=== PATIENT | female | born 1955 | race Caucasian/White ===

== ENCOUNTER 2018-12-30 06:03 | Observation (INO) | payer BC ==
[~2018-12-30] VITALS: Ht 167.6 cm; Wt 79.2 kg
[~2018-12-30 06:03] MED LIST: ALENDRONATE SOD70 MG PO; CAL MAG ZINC +1 EAC1 PO; DICLOFENAC SODI75 MG PO; FLEXERIL10 MG PO; L-LYSINE500 M2 PO; LATANOPROST2.5 ML OU; LEVOTHYROXINE112 MCG PO; LIOTHYRONINE SO5 MCG PO; LISINOPRIL-HCT1 EAC2 PO; MEDROL4 M1 PO; METFORMIN HCL500 M1 PO; NORCO 5-325 TA1 EACH PO; QC MULTI VITE PO; VITAMIN D35000 UNI1 PO
[2018-12-30] MEDS ORDERED: LISINOPRIL20 MG PO ×2 (09:12)
[2018-12-30] MEDS ORDERED: HYDROCHLOROTHIA50 MG PO ×2 (09:12)
[2018-12-30] MEDS ORDERED: DICLOFENAC SODI75 MG PO ×2 (09:13)
--- NOTE | 2018-12-30 10:00 | NUR ---
PT ADMITED TO ROOM 127 FROM THE ED ON THE STRETCHER. PT IS DROWSY/LETHARGIC AT TIMES. PT WAKES FOR A FEW MINUTES TO TALK, BUT FALLS BACK TO SLEEP QUICKLY. PT A BEDSIDE AND ANSWERED A LOT OF THE ADMISSION QUESTIONS FOR THE PATIENT.
--- NOTE | 2018-12-30 11:10 | NUR ---
PT ASSESSMENT COMPLETED. PT NOW RESTING IN BED. PT HAS BEEN OFF/ON BEDPAN. PT HAS BROWN LIQUID STOOL X3 SINCE ADMISSION. UPDATED MD CRUZ OF THIS AND PT HAVING VAGAL EPISODES IN THE 40'S AND VOMITING X2. PER MD GIVE PHENERGAN AT THIS TIME. WILL CONTINUE TO CLOSELY MONITOR.
--- NOTE | 2018-12-30 11:30 | NUR ---
PT LAST BOWEL MOVEMENT NOTED TO HAVE RED BLOOD THROUGHOUT. UPDATED MD CRUZ. SEE NEW ORDERS.
--- NOTE | 2018-12-30 12:30 | NUR ---
PT HAD SEVERAL MORE VOMITING EPISODES AFTER PHENERGAN. GAVE PRN REGLAN. WILL CONTINUE TO CLOSELY MONITOR. PT VOMIT IS CLEAR WITH BROWN FLECKS. TESTED POSITIVE FOR BLOOD. MD ACUÑA HERE AND NOTIFIED.
--- NOTE | 2018-12-30 13:16 | NUR ---
NEW ORDERS PLACED PER MD ACUÑA. WILL PLACE HOOD PER MD. PT REMAINS DROWSY. PTS AT THE BEDSIDE. WILL CONTINUE TO CLOSELY MONITOR.
--- NOTE | 2018-12-30 13:40 | NUR ---
UPDATED MD CRUZ ABOUT NEW ORDERS AND PLANS PER DOCTOR ACUÑA. PER MD MAY DC LOVENOX AND ORDER SCD'S. UPDATED MD CRUZ ABOUT CONTINUED BRADYCARDIA AND BLOOD PRESSURES IN THE 90'S. NO VOMITING SINCE REGLAN ADMINISTERED. PT CONTINUES TO BE DROWSY SINCE ADMISSION. PT IS ALERT AND ORIENTED WHEN AWAKE.
--- NOTE | 2018-12-30 14:00 | NUR ---
PT HOOD PLACED WITH NO ISSUES. WILL START 24 HR URINE COLLECTION PER BOTH MDS. PT RESTING IN BED. WILL CONTINUE TO CLOSELY MONITOR.
[2018-12-30] MEDS ORDERED: GABAPENTIN100 MG PO ×2 (15:45)
[2018-12-30] MEDS ORDERED: OMEGA 3 1,0001 EACH PO ×2 (15:48)
--- NOTE | 2018-12-30 16:42 | NUR ---
CRUZ IN TO SEE PATIENT. UPDATED ON VITALS, URINE OUTPUT, AND PATIENTS CONDITION. PT STATES "I FEEL MUCH BETTER THAN WHEN I CAME IN". NO BM OR VOMITING THIS AFTERNOON. CALLED DR. ANDRADE AND DR ANNE CHAMPAGNE FOR RECORDS. AWAITING FAX FROM BOTH DOCTORS OFFICES. PT AND ARE AGREEABLE WITH PLAN OF CARE. WILL CONTINUE TO CLOSELY MONITOR.
--- NOTE | 2018-12-30 16:56 | EKG ---
[facility] [address] [facility] [place], [place] [address] Signed Sinus rhythm with premature atrial complexes Anterior infarct , age undetermined ST \T\ T wave abnormality, consider lateral ischemia Prolonged QT Abnormal ECG When compared with ECG of 07-AUG-2016 19:58, Significant changes have occurred Confirmed by RENATA CRUZ MD ([id number]) on 12/30/2018 4:56:22 PM Electronically Signed By: RENATA CRUZ MD 12/30/18 1656 PATIENT NAME: JOVITA GUTIERREZ Electrocardiogram DATE OF : 59 PHYSICIAN: RENATA CRUZ MD REPORT #: [id number] REPORT IS CONFIDENTIAL AND NOT TO BE RELEASED WITHOUT AUTHORIZATION
[2018-12-30] MEDS ORDERED: SELENIUM50 MCG PO ×2 (17:16)
--- NOTE | 2018-12-30 17:30 | NUR ---
PT COMPLAING THAT IT FEELS LIKE SHE NEEDS TO PEE. HOOD DRAINING CLEAR YELLOW UINE. EMPTIED TUBING. NO "AIR LOCK" NOTED. DEFLATED BALOON AND PUSHED HOOD IN FURTHER. PT NO LONGER COMPLAING AT THIS TIME. WILL CONTINUE TO CLOSELY MONITOR.
--- NOTE | 2018-12-30 17:48 | NUR ---
Meds reconciled with pharmacy records, patient list and patient interview
--- NOTE | 2018-12-30 18:12 | NUR ---
PT RESTING IN BED. PT STATES "I FEEL MUCH BETTER THAN EARLIER". PT STATES SHE IS STILL HAVING SOME DISCOMFORT WITH HOOD CATHETER, BUT ITS TOLERABLE AT THIS TIME. PT IS MORE AWAKE THIS EVENING AND IS ABLE TO HOLD A CONVERSATION. WILL CONTINUE TO CLOSELY MONITOR.
--- NOTE | 2018-12-30 18:34 | NUR ---
100MLS OF URINE GOT SPILLED. CALLED AND TALKED WITH CHRISTOPHER IN THE LAB. PER CHRISTOPHER AMOUNT WAS SUCH A MINISCUAL AMOUNT OF URINE IT WILL NOT AFFECT THIS TEST, AND NO NEED TO RESTART THE COLLECTION OF URINE, CAN CONTINUE WITH CURRENT COLLECTION.
--- NOTE | 2018-12-30 19:05 | NUR ---
PER MD HOLD LR FOR 30 MINUTES THEN REDRAW LABS. HOLD FLUIDS UNTIL LABS ARE RESULTED. UPDATED ABOUT URINE OUTPUT. NO NEW ORDERS. WILL CONTINUE TO CLOSELY MONITOR.
--- NOTE | 2018-12-30 19:54 | NUR ---
RECEIVED REPORT FROM [facility]. pt RESTING IN BED. LAB IN ROOM FOR DRAW. pt COMPLAINED OF BLADDER "FEELING FULL". WILL REASSESS AFTER LAB. CALL LIGHT WITHIN REACH. WHITEBOARD UPDATED.
--- NOTE | 2018-12-30 20:00 | NUR ---
PATIENT RESTFUL WITH EYES CLOSED, DENIES NEEDS AT THIS TIME, DENIES NAUSEA AND PAIN. PATIENT IS ALERT AND ORIENTED, DROWSY. LUNGS ARE CLEARR THROUGHOUT, SPO2 94% AND ABOVE ON RA. HEART RATE AND BP WNL. PATIENT DENIES RECENT STOOL, BOWEL TONES ARE HYPOACTIVE, ABD NON-TENDER, HOOD PRESENT, VOIDING QS PALE YELLOW URINE, PATIENT COMPLAINS OF BLADDER FEELING FULL AND FEELS NEED TO VOID, EDUCATED PATIENT THAT THIS IS COMMON EXPERIENCE WITH CATHETERIZATION. SCATTERED SPOTS NOTED ON ARMS AND CHEST, PATIENT NOTES THAT SHE HAD CHEMICAL SKIN TREATMENT TODAY. IV INTACT, SALINE LOCKED AT THIS TIME. [facility].
--- NOTE | 2018-12-30 21:15 | NUR ---
PATIENT REMAINS RESTFUL LAYING ON SIDE, DENIES NEEDS AT THIS TIME. IVF STARTED PER NEW ORDER. CALL LIGHT WITHIN REACH, HOOD CONTINUES TO DRAIN QS PALE YELLOW URINE.
--- NOTE | 2018-12-30 21:35 | NUR ---
DR. CRUZ CALLED ABOUT PATIENT'S LAB RESULTS, PATIENT TO RECEIVE KAYEXELATE AND IVF SWITCHED TO .45% NORMAL SALINE.
--- NOTE | 2018-12-30 23:29 | NUR ---
PATIENT REPORTS 5/10 HEADACHE AND STATES "I JUST CAN'T SLEEP. I AM FEELING PRETTY MISERABLE RIGHT NOW." ALSO REPORTS ABDOMINAL PAIN. DENIES FURTHER NEEDS. ASSESSMENT DONE, NO ACUTE CHANGES FROM INITIAL ASSESSMENT. DENIES NAUSEA. PATIENT ALSO HAS 100.[address] CRUZ THAT PATIENT HAS LOW GRADE FEVER AND ASKED IF HE WANTED ANY NEW LABS BEFORE ADMINISTERING TYLENOL. NO NEW ORDERS AT THIS TIME. IVF INFUSING, HOOD DRAINING QS URINE. CALL LIGHT WITHIN REACH.
--- NOTE | 2018-12-31 01:26 | NUR ---
PATIENT UP TO BEDSIDE COMMODE, TOLERATED WELL, NO DIZZINESS. HAD MODERATE AMOUNT OF LOOSE STOOL WITH SMALL AMOUNT OF MUCOID BLOOD. PATIENT NOW RESTING IN BED AGAIN, BREATHING IS EVEN AND UNLABORED. DENIES FURTHER NEEDS. VITALS WNL. CALL LIGHT WITHIN REACH.
--- NOTE | 2018-12-31 01:54 | NUR ---
PATIENT UP TO BSC AGAIN, HAD MORE LOOSE STOOL, MINIMAL BLOOD NOTED THIS TIME. NOW RESTING AGAIN IN BED. PATIENT DENIES FURTHER NEEDS. CALL LIGHT WITHIN REACH.
--- NOTE | 2018-12-31 01:55 | NUR ---
WHILE PATIENT UP TO COMMODE, NO CHANGE IN HEART RATE, BP UP TO 144/85 (99), CONTINUES TO DENIES DIZZINESS, GAIT IS STEADY.
--- NOTE | 2018-12-31 03:04 | NUR ---
PATIENT IS RESTFUL WITH EYES CLOSED, BREATHING IS EVEN AND UNLABORED. VITALS WNL, DENIES HEADACHE, STATES THAT ABD CRAMPING AND PAIN CONTINUES, NOT SEVERE BEFORE, DENIES NEED FOR MEDICATION. PATIENT HAS NO REQUESTS AT THIS TIME. CALL LIGHT WITHIN REACH.
--- NOTE | 2018-12-31 04:16 | NUR ---
PATIENT REMAINS RESTFUL WITH EYES CLOSED. DENIES NEEDS AT THIS TIME. REPORTS CONTINUED ABDOMINAL PAIN/CRAMPING, DENIES NEED FOR MEDICATION. NO ACUTE CHANGES FROM PREVIOUS ASSESSMENT, VITALS WNL. CALL LIGHT WITHIN REACH, IVF INFUSING PER ORDERR.
--- NOTE | 2018-12-31 05:27 | NUR ---
PATIENT REMAINS RESTFUL, DENIES NEEDS AT THIS TIME. ABD REMAINS PAINFUL WITH CRAMPING, PATIENT DENIES NEEDS IN THIS REGARD. CALL LIGHT WITHIN REACH.
--- NOTE | 2018-12-31 06:28 | NUR ---
ASSISTED PATIENT TO [facility] HAD MEDIUM SIZED MUCOID STOOL, NO APPARENT BLOOD SEEN. NOW RESTING IN BED AGAIN. REPORTS 4/10 HEADACHE AND 3/10 ABD PAIN. REPORTS ABDOMINAL PAIN CRAMPING AND PASSING SIGNIFICANT AMOUNT OF FLATUS. PRN TYLENOL GIVEN. PATIENT DENIES FURTHER NEEDS. VITALS WNL, NO ACUTE CHANGES IN ASSESSMENT. CALL LIGHT WITHIN REACH, IVF INFUSING PER ORDE, HOOD DRAINING QS DILUTE URINE.
--- NOTE | 2018-12-31 07:20 | CONS ---
[facility] [address] [place], [place] [address] Signed DATE OF CONSULTATION: 12/30/2018 CHIEF COMPLAINT: Rectal bleeding. HISTORY OF PRESENT ILLNESS: Jovita is a 63-year-old female, who over the last 3-4 years has had troubles with various hypotensive episodes and decreased level of consciousness. The exact etiology is unclear. She actually saw an towboat pilot, was evaluated for carcinoid syndrome and apparently that all came out negative. She actually saw a neurologist and had an EEG and it was negative. She then had a laparoscopic appendectomy and apparently had some type of vasovagal episode so-called coated on the table, but came through that just fine. 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 Her happens to work here in our hospital. More recently she was on the toilet and was found unresponsive, been hypotensive. Her called the ambulance and she remained hypotensive while she came in the emergency room. She responded to IV fluids and some octreotide. Apparently on this occasion, her skin was quite red, which again brings up this idea of carcinoid syndrome. She has been admitted to the ICU on our Internal Medicine Service. Her chest x-ray was unremarkable. The lab show the potassium a little low at 2.7, although she is on hydrochlorothiazide. She is diabetic, but the sugar was about 319 with quite a bit of sugar in the urine. EKG showed normal sinus rhythm, possible ischemia in the lateral leads. Chest x-ray was unremarkable. CT of the brain was unremarkable. CT of abdomen was unremarkable, specifically with respect to the liver, but also there was quite a bit of stool in her rectum and colon. Later, she had several soft bowel movements and now she is having diarrhea with some blood in it, most likely from some ischemia. Her told me she has very regular bowel movements and never has to strain for constipation. I have been asked to see her and follow along as a general surgeon do that rectal bleeding. Her told me today that her primary care provider, Dr. Anne Champagne did her colonoscopy probably less than five years ago up in [place]. In the meantime, she is minimally responsive in the ICU, but has unlabored breathing and no abdominal pain. PAST MEDICAL HISTORY: Hypertension, hypothyroidism, osteoporosis, question of seizures, question of carcinoid syndrome, glaucoma, also type 2 diabetes. PAST SURGICAL HISTORY: Bilateral knee surgery, laparoscopic appendectomy, tonsillectomy, adenoidectomy, hysterectomy, laparoscopic abdominal surgery, lumbar fusion with metal remaining, four knee arthroscopies, and a colonoscopy less than five years ago. SOCIAL HISTORY: She does not smoke or drink. She lives with her , Roshan Pruett at Electronically Signed By: TACHO ACUÑA MD 12/31/18 0720 PATIENT NAME: JOVITA GUTIERREZ CONSULTATION DATE OF : 59 REPORT #: [id number] PHYSICIAN: TACHO ACUÑA MD PCP: ANNE CHAMPAGNE MD REPORT IS CONFIDENTIAL AND NOT TO BE RELEASED WITHOUT AUTHORIZATION [address] [address] Signed [phone]. Dr. Anne Champagne is her primary care provider in [place]. [facility]. Dr. Cass Calderon is her towboat pilot. She has her own [employer]. FAMILY HISTORY: Her mother had amyotrophic lateral sclerosis. REVIEW OF SYSTEMS: I reviewed 10 systems with her as Jovita is not able to talk right now. ALLERGIES: Erythromycin, penicillin, tetracycline, Percodan, phenyltoloxamine, wasps, and shellfish. MEDICATIONS: Fosamax, calcium, magnesium, vitamin D, Voltaren, gabapentin, Xalatan eye drops, levothyroxine, liothyronine, lisinopril, hydrochlorothiazide, metformin, multivitamin, omega-3, and selenium. PHYSICAL EXAMINATION: VITAL SIGNS: Blood pressure 118/59, heart rate 66, respiratory rate 18, temperature 98.0 degrees. She is 98% on 2 L nasal cannula. She is 5 feet 6 inches, 80 kg. GENERAL: Jovita is a 63-year-old female, lying supine semi-recumbent in her hospital bed. She is minimally arousable. She is not able answer questions. Her is at the bedside along with our nurse. She had unlabored breathing. LUNGS: Clear to auscultation. HEART: Regular rate and rhythm. ABDOMEN: Soft and nontender. LABORATORY DATA: Her white blood cell count is 8, hemoglobin 13, mean cell volume is 99, and neutrophils are 11. Potassium is 2.7, BUN 20, creatinine 0.9, and glucose 319. Urine analysis showed some glucose. Liver function tests are negative. Albumin is 3.8 and her EKG shows some normal sinus rhythm, question of some ischemia in the lateral leads. RADIOGRAPHIC STUDIES: Chest x-ray was unremarkable. CT scan of the brain unremarkable. CT scan of the abdomen and pelvis showed an unremarkable liver and some stool in the colon and rectum. ASSESSMENT AND PLAN: Jovita is a 63-year-old female, who presents with some recurrent episode of hypotension and decreased level of consciousness at least an hour in length. Now, she has had some bowel movements with diarrhea and now some blood associated with that most likely from ischemia. We know she has had a colonoscopy less than five years ago. I think at this point, she needs to be watched conservatively and we will let the Medical Service Electronically Signed By: TACHO ACUÑA MD 12/31/18 0720 PATIENT NAME: JOVITA GUTIERREZ CONSULTATION DATE OF : 59 REPORT #: [id number] PHYSICIAN: TACHO ACUÑA MD PCP: ANNE CHAMPAGNE MD REPORT IS CONFIDENTIAL AND NOT TO BE RELEASED WITHOUT AUTHORIZATION [facility] [address] [facility], [place] [address] Signed rehydrate her and correct potassium and so forth. We would only re-scope her at this time if really absolutely necessary. I have explained this to her and her nurse, Liliane. Tacho Acuña MD ALB/MODL /[id number] cc: MD Tacho Agrawal MD Copies: ANNE CHAMPAGNE MD, ANDREW L MD ~ Electronically Signed By: TACHO ACUÑA MD 12/31/18 0720 PATIENT NAME: JOVITA GUTIERREZ CONSULTATION DATE OF : 59 REPORT #: [id number] PHYSICIAN: TACHO ACUÑA MD PCP: ANNE CHAMPAGNE MD REPORT IS CONFIDENTIAL AND NOT TO BE RELEASED WITHOUT AUTHORIZATION
--- NOTE | 2018-12-31 09:25 | NUR ---
CHECKED IN WITH PATIENT AT 0900 WHEN SHE RECIEVED HER BREAFAST. PATIENT WAS UP IN THE BED ON THE PHONE WITH HER DAUGHTER. PATIENT APPEARS TO BE IN A POSITIVE MOOD AND IS ACTIVELY ENGAGED. PATIENT DOES NOT APPEAR TO BE IN ANY DISTRESS. PATIENT HAD NO COMPLAINTS OF PAIN AT THIS TIME.
--- NOTE | 2018-12-31 09:27 | NUR ---
URINE CONTIOUES TO BE COLLECTED FOR 24 HOUR URINE TEST. CONTAINERS ARE ON ICE, AND HOOD BAG IS ALSO ON ICE. PT IV WAS SALINE LOCKED BY STUDENT NURSE EVELINE FROM [facility]. PT DIET WAS ADVANCED AND SHE IS TOLERATING IT WELL AT THIS TIME. PT C/O ABD BLOATING THAT WAS UNCOMFORTABLE. BUT DENIES THE NEED FOR PAIN MEDICATIONS, PT CASTELLANOS HAS DECREASED TO 1/.
--- NOTE | 2018-12-31 10:13 | NUR ---
CHECKED IN WITH PATIENT AT 1000. PATIENT WAS LAYING ON HER SIDE TRYING TO TAKE A NAP. ASKED THE PATIENT IF SHE WAS FEELING OKAY. PATIENT SAID THAT HER HEADACHE WAS BACK. PRN TYLENOL WAS OFFERED. PATIENT DECLINED AND STATED SHE WANTED TO SEE IF IT WOULD GO AWAY ON ITS OWN. PATIENT HAD NO OTHER COMPLAINTS AT THIS TIME.
--- NOTE | 2018-12-31 11:15 | NUR ---
CHECKED IN WITH PATIENT TO SEE HOW HER HEADACHE WAS DOING. PATIENT STATED HER HEADACHE WAS SLIGHTLY WORSE AND WAS A 4/10. PATIENT REQUESTED HER PRN TYLENOL. PATIENT WAS OFFERED TO ORDER LUNCH. REQUESTED CHICKEN NOODLE SOUP AND A FRUIT PLATE. PATIENT STATED SHE WAS SLIGHTLY NAUSEOUS, DOES NOT BELIEVE IT WAS CAUSED BY HER BREAKFAST. PATIENT DECLINED HER PRN NAUSEA MEDS.
--- NOTE | 2018-12-31 11:27 | NUR ---
DR ACUÑA INTO SEE PT AT THIS TIME. NO NEW ORDERS RECEIVED.
--- NOTE | 2018-12-31 12:46 | NUR ---
CHECKIN IN WITH PATIENT AT 12. PATIENTS IS IN THE ROOM AND PATIENT IS EATING LUNCH. PATIENT DOES NOT APPEAR TO BE IN DISTRESS. CHECKED BACK IN WITH PATIENT AT 1230. PATIENT STATES SHE IS HAVING INCREASED ABDOMINAL PAIN. PATIENT WAS ASKED IF SHE HAS ANY NAUSEA AND STATED THAT SHE DOES BUT IT IS VERY LITTLE. PATIENTS NEXT DOSE OF TYLENOL IS NOT YET AVAILABLE. PATIENT DID STATE SHE DID NOT WANT ANY MORE MEDICATIONS AT THIS TIME. PATIENT IS CURRENTLY LAYING DOWN IN THE DARK AND TRYING TO TAKE A NAP.
--- NOTE | 2018-12-31 14:13 | NUR ---
HOOD CATHETER DC'D AT THIS TIME, THE 24 HOUR URINE SENT TO LAB ALSO AT THIS TIME.
--- NOTE | 2018-12-31 14:38 | NUR ---
PT AMBULATED TO /S TO ROOM 113 AT THIS TIME, ALL PERSONAL BELONGINGS SENT WITH PT AT THIS TIME. PT C/O NAUSEA WITH AMBULATION, BUT DENINED THE NEED FOR MEDICATIONS. M/S NURSE IS AWARE OF THIS. STUDENT NURSE GAVE VERBAL REPORT TO TONE ON /S ALL QUESTIONS ANSWERED AT THIS TIME.
--- NOTE | 2018-12-31 14:41 | NUR ---
REPORT WAS GIVEN TO RECIVING RN ON MED SURG. PAT[facility] WITH NO ASSISTANCE. PATIENT APPEARED STEADY BUT COMPLAINED OF NAUSEA ON THE WALK OVER. PATIENT DENIED THE NEED FOR NAUSEA PRN MEDICATIONS.
--- NOTE | 2018-12-31 14:52 | NUR ---
PT SLEEPING, WILL CHECK BACK AGAIN
--- NOTE | 2018-12-31 14:53 | NUR ---
PATIENT AMBULATED FROM CCU TO 113. PATIENT REPORTS 3-4/10 ABDOMINAL PAIN AND HAD MULTIPLE EPISODES OF EXPLOSIVE BM'S LAST NIGHT. PATIENT GIVEN 4MG OF IV ZOFRAN FOR MILD NAUSEA/ABD CRAMPS. IN ROOM WITH PATIENT.
--- NOTE | 2018-12-31 16:47 | NUR ---
PATIENT HAS BEEN RESTING SINCE COMING FROM CCU. PATIENT HAD A LONG NIGHT LAST NIGHT, FREQUENT BM'S WITH TINGES OF BLOOD. ZOFRAN GIVEN FOR NAUSEA. PATIENT HAS BEEN ABLE TO REST. IN ROOM WITH PATIENT.
--- NOTE | 2018-12-31 16:49 | NUR ---
PATIENT RESTING IN BED. IN ROOM. ICE WATER GIVEN. CALL LIGHT WITHIN REACH. NO OTHER NEEDS AT THIS TIME
--- NOTE | 2018-12-31 17:06 | NUR ---
PT IS EXPECTING TO RETURN HOME WITH HER TOMORROW.
--- NOTE | 2018-12-31 17:33 | NUR ---
PATIENT ABLE TO EAT 50% OF DINNER. PATIENT REPORTS NO NAUSEA, HAS BLOATING/CRAMPY FEELING TO ABDOMEN. PATIENT DENIES NEEDING ANY MEDICATIONS AT THIS TIME.
--- NOTE | 2018-12-31 17:54 | NUR ---
PATIENT RESTING IN BED. IN ROOM. VITAL SIGNS AND I&O DONE. HIGH TEMPERATURE AND PATIENT DID NOT VOID DURING THIS PERIOD. RN NOTIFIED. CALL LIGHT WITHIN REACH. NO OTHER NEEDS AT THIS TIME.
--- NOTE | 2018-12-31 19:20 | NUR ---
[facility]. PT AWAKE, RESTING IN BED, RR EVEN AND UNLABORED. PT DENIES NEEDS AT THIS TIME, WHITEBOARD UPDATED. CALL LIGHT IN REACH.
--- NOTE | 2018-12-31 21:38 | NUR ---
ASSESSMENT COMPLETE. BS WNL, NO INSULIN SS ADMINSITERED. PT STATES, "IT'S NORMAL FOR MY BLOOD SUGAR TO BE CLOSE TO OR AROUND 100". PT SALINE LOCKED, IV SITE WNL. PT AMBULATED SBA TO BATHROOM TO VOID, OUTPUT RECORDED. PT DENIES NEEDS AT THIS TIME, VS RECORDED FROM HELP FROM [facility]. PT NOW RESTING IN BED, CALL LIGHT IN REACH. DOOR CLOSED PER PT REQUEST.
--- NOTE | 2018-12-31 22:18 | NUR ---
BLOOD SUGAR DONE.
--- NOTE | 2018-12-31 22:48 | NUR ---
TEMP TAKEN AND CHARTED PER REQUEST OF [facility].
--- NOTE | 2019-01-01 | NUR ---
FLUIDS REMOVED FROM PT'S ROOM. PT IS NOW NPO. PT RESTING IN BED, RR EVEN AND UNLABORED. IV FLUIDS INFUSING PER MD ORDERS. PT APPEARS COMFORTABLE, NO SIGNS OF RESPIRATORY DISTRESS. CALL LIGHT IN REACH.
--- NOTE | 2019-01-01 00:45 | NUR ---
PT RESTING IN BED, RR EVEN AND UNLABORED. EYES CLOSED. PT APPEARS COMFORTABLE, NO SIGNS OF RESPIRATORY DISTRESS NOTED. CALL LIGHT IN REACH.
--- NOTE | 2019-01-01 03:34 | NUR ---
PT RESTING IN BED, RR EVEN AND UNLABORED. EYES CLOSED. PT APPEARS COMFORTABLE. CALL LIGHT IN REACH.
--- NOTE | 2019-01-01 05:26 | NUR ---
PT HAD A VERY UNEVENTFUL EVENING, SLEPT FOR THE MAJORITY OF THE SHIFT. PT A/OX4, REPORTED ABDOMINAL PAIN, BUT DENIES NEED FOR PHARMACOLOGICAL INTERVENTION. BOWEL TONES ACTIVE, NO NAUSEA THIS SHIFT, ADA DIET. BS WNL, NO INSULIN SS ADMINISTERED THIS SHIFT. PT SBA W/ AMBULATION. VOIDING QS, NO BM THIS SHIFT. SALINE LOCKED. DAILY WEIGHT. USES CALL LIGHT APPROPERIATELY.
--- NOTE | 2019-01-01 07:20 | NUR ---
RECIEVED BEDSIDE REPORT FROM [facility]. PT AWAKE AND ALERT, WALKING IN HALLS. PT HAS BEEN IN PT ROOM DOING HER AM EXERCISES TO RELIEVE BACK PAIN. PT ANXIOUS TO GO HOME. NO COMPLAINTS AT THIS TIME.
--- NOTE | 2019-01-01 09:25 | NUR ---
PATIENT RESTING IN BED. VITAL SIGNS AND I&O DONE. CALL LIGHT WITHIN REACH. NO OTHER NEEDS AT THIS TIME
--- NOTE | 2019-01-01 13:20 | NUR ---
PATIENT RESTING IN BED. VITAL SIGNS AND I&O DONE. PATIENT COMPLAINS ABOUT HEADACHE AND ASKS FOR MEDICATION. RN NOTIFIED. CALL LIGHT WITHIN REACH. NO OTHER NEEDS AT THIS TIME
[2019-01-01] MEDS ORDERED: ZOFRAN4 MG PO ×2 (14:35)
--- NOTE | 2019-01-01 16:05 | NUR ---
PT READY FOR DISCHARGE. PT REPORTS NOT FEELING WELL, BUT IS AT BASELINE. PT REQUESTED TO BE DISCHARGED. PT FEELS SHE WILL REST BETTER AT HOME. IV REMOVED, VITALS TAKEN, ALL PERSONAL BELONGINGS TAKEN. PT REPORTS MINIMAL PAIN, MILD NAUSEA.
[2019-01-02] MEDS ORDERED: TAMIFLU75 MG PO (15:54)
== END 2019-01-01 16:05 | disposition home or self-care (01) ==
LOC: ED 06:03 → CCU 06:04 → MS 12-31 14:35
PROVIDERS: ADMIT Internal Medicine
DX: I95.9 Hypotension, unspecified (principal); R56.9 Unspecified convulsions; R23.2 Flushing; E11.9 Type 2 diabetes mellitus without complications; I10 Essential (primary) hypertension; E03.9 Hypothyroidism, unspecified; K92.1 Melena; H40.9 Unspecified glaucoma; M81.0 Age-related osteoporosis without current pathological fracture; Z98.1 Arthrodesis status; Z79.84 Long term (current) use of oral hypoglycemic drugs; Z79.1 Long term (current) use of non-steroidal anti-inflammatories (NSAID); Z79.83 Long term (current) use of bisphosphonates; Z79.899 Other long term (current) drug therapy; Z88.1 Allergy status to other antibiotic agents; Z88.5 Allergy status to narcotic agent; Z88.0 Allergy status to penicillin; Z88.8 Allergy status to other drugs, medicaments and biological substances
CPT/HCPCS: 36415; 51701; 51702; 70450; 71045; 74177; 80048; 80053; 81001; 81050; 82340; 83497; 83735; 85025; 85610; 85730; 86316; 86850; 86900; 86901; 86920; 87045; 87046; 87205; 87493; 93005; 93010; 96361; 96366; 96367; 96368; 96372; 96375; 96376; 99285-25; G0378; J1650; J1815; J2060; J2354; J2405; J2550; J2765; J3475; J3480; J7030; J7050; J7060; J7120; Q9967

== ENCOUNTER 2019-01-02 15:30 | Emergency (ER) | payer BC ==
[~2019-01-02] VITALS: Ht 167.6 cm; Wt 79.2 kg
[~2019-01-02 15:30] MED LIST changes: +GABAPENTIN100 MG PO; +HYDROCHLOROTHIA50 MG PO; +LISINOPRIL20 MG PO; +OMEGA 3 1,0001 EACH PO; +SELENIUM50 MCG PO; +ZOFRAN4 MG PO
--- OUTSIDE RECORDS SUMMARY | 2019-01-02 15:32 | XMS ---
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 E.D. VISIT COUNT (12 MO.) 2 [facility] TOTAL 2 NOTE: Visits indicate total known visits. ED/UCC VISIT TRACKING (12 MO.) 01/02/2019 15:31 [facility] TYPE: Emergency COMPLAINT: - FEVER 12/30/2018 06:03 [facility] TYPE: Emergency COMPLAINT: - ALT LOC INPATIENT VISIT TRACKING (12 MO.) 12/30/2018 06:04 [facility]re[facility] OR TYPE: Medical Surgical COMPLAINT: - HYPOTENSION [email or web address]
[2019-01-02] MEDS ORDERED: TAMIFLU75 MG PO (15:54)
== END 2019-01-02 16:02 | disposition home or self-care (01) ==
LOC: ED 15:30
DX: J11.1 Influenza due to unidentified influenza virus with other respiratory manifestations (principal); I10 Essential (primary) hypertension; E03.9 Hypothyroidism, unspecified; Z91.038 Other insect allergy status; Z91.013 Allergy to seafood; Z88.0 Allergy status to penicillin; Z88.1 Allergy status to other antibiotic agents; Z88.5 Allergy status to narcotic agent; Z88.8 Allergy status to other drugs, medicaments and biological substances; Z79.899 Other long term (current) drug therapy
CPT/HCPCS: 87502; 99283

== ENCOUNTER 2019-12-25 04:35 | Observation (INO) | payer BC ==
[~2019-12-25] VITALS: Ht 167.6 cm; Wt 76.7 kg
[~2019-12-25 04:35] MED LIST changes: -CAL MAG ZINC +1 EAC1 PO; +CALCIUM 600 +1 EAC5 PO; +TAMIFLU75 MG PO
--- NOTE | 2019-12-25 06:14 | EKG ---
[facility] [address] [facility] [place], [place] [address] Signed Sinus rhythm with fusion complexes Marked ST abnormality, possible inferior subendocardial injury Prolonged QT Abnormal ECG When compared with ECG of 30-DEC-2018 06:42, Significant changes have occurred Confirmed by CAREY LEAL MD ([id number]) on 12/25/2019 6:14:42 AM Electronically Signed By: CAREY LEAL MD 12/25/19 0614 PATIENT NAME: JOVITA GUTIERREZ Electrocardiogram DATE OF : 59 PHYSICIAN: CAREY LEAL MD REPORT #: [id number] REPORT IS CONFIDENTIAL AND NOT TO BE RELEASED WITHOUT AUTHORIZATION
--- NOTE | 2019-12-25 08:29 | NUR ---
PATIENT ARRIVES TO CCU AT 0740 FROM ER WITH HER . PT ADMITTED FOR HYPOTENSION/HYPOTHERMIA AND A HISTORY OF CARDINOID TUMOR. PATIENT STATES SHE IS DIZZY AND OVERALL NOT FEELING WELL. PT REMAINS HYPOTENSIVE. CLEAR LIQUID DIET ORDERED. PT GIVEN WATER AND CHAPSTIX. IVF STARTED. PT IS ON ROOM AIR. HOOD CATH DRAINING CLEAR YELLOW URINE. TEMP PROBE HOOD SHOWS 99.2 AT THIS TIME. CONTINUE TO MONITOR BLOOD PRESSURES CAREFULLY AND CLOSELY. PT STATES IT WAS ALMOST A YEAR AGO THAT SHE WAS ADMITTED FOR THIS SAME TYPE OF SYNDROME. PT TO HAVE MORE TESTING DONE AT [facility] ON JANUARY 12 RELATED TO HER CARCINOID SYNDROME.
--- NOTE | 2019-12-25 10:49 | NUR ---
PATIENT ASLEEP AT THIS TIME AND APPERAS TO BE RESTING WELL. LAST BP 105/58. HOOD CONTINUES TO DRAIN YELLOW URINE. HR INTHE 60s. SP02 96%. CONTINUE TO MONITOR.
[2019-12-25] MEDS ORDERED: DICLOFENAC SODI75 MG PO (15:26)
--- NOTE | 2019-12-25 15:44 | NUR ---
PATIENT WANTING TO GET UP AND MOVE AROUND. PT AMBULATES IN [place] WITH THIS RN STANDY BY ASSIST. PT STEADY ON FEET AND DENIES FEELING DIZZY. MOST RECENT BP 96/58, HR 70s. PT C/O BLADDER FEELING LIKE IT'S FULL. HOOD HAS AT TIMES BEEN VAPOR LOCKED AND NOT DRAINING WELL. DR. LEAL UPDATED AND PLAN OF CARE DISCUSSED. OKAY TO ADV DIET TO REGULAR THIS EVENING AND ALSO TO PULL HOOD CATH. PHARMACY IN ROOM DISCUSSING WITH PATIENT AT THIS TIME.
[2019-12-25] MEDS ORDERED: ALENDRONAT70 MG/75 M PO (16:39)
[2019-12-25] MEDS ORDERED: MAGOX 400400 MG PO (16:43)
[2019-12-25] MEDS ORDERED: VITAMIN K100 MCG PO (16:43)
--- NOTE | 2019-12-25 16:46 | NUR ---
Medications reconciled using pharmacy records and patient interview
--- NOTE | 2019-12-25 17:46 | NUR ---
PATIENT UP TO BATHROOM AT THIS TIME. REMAINS STEADY ON FEET. PT STATES SHE IS STILL HAVING A BAD HEADACHE - UNABEL TO GIVE ANY MORE TYLENOL AT THIS TIME. WILL CONTINUE TO MONITOR.
--- NOTE | 2019-12-25 19:48 | NUR ---
REPORT RECEIVED FROM [facility]. pt RECEIVED NIGHTLY MEDS AND PAIN MED FOR HEADACHE 04/12. pt REQUESTED MEDS EARLY SHE IS TIRED AND WANTED TO SLEEP. ASSESSMENT DONE. pt REPORTED CONGESTION "IT CAN SOMETIMES BE A PRECOURSER TO AN EPISODE" WILL CONTINUE TO MONITOR. pt WILL CALL IF ANY SYMPTOMS INCREASE OR CHANGE. pt AMBULATED TO THE TOILET AND BACK TO BED. STEADY ON FEET, DENIED FEELING LIGHTHEADED OR DIZZY. SETTLED IN BED. NO REQUESTS AT THIS TIME. , HARRY, AT BEDSIDE. CALL LIGHT WITHIN REACH.
--- NOTE | 2019-12-25 21:23 | NUR ---
ROUNDED ON pt. RESTING WITH EYES CLOSED, RESPIRATIONS REGULAR AND UNLABORED. CALL LIGHT WITHIN REACH.
--- NOTE | 2019-12-25 21:45 | NUR ---
CALL LIGHT ON pt UP TO VOID AND BACK TO BED. REPORTED THAT HER HEADACHE IS "A LITTLE BETTER" NO REQUESTS AT THIS TIME. CALL LIGHT WITHIN REACH.
--- NOTE | 2019-12-25 23:48 | NUR ---
ROUNDED ON pt. RESTING WITH EYES CLOSED, RESPIRATIONS REGULAR AND UNLABORED. CALL LIGHT WITHIN REACH.
--- NOTE | 2019-12-26 01:00 | NUR ---
CALL LIGHT ON. pt UP TO VOID AND BACK TO BED. ASSESSMENT DONE. pt REPORTED HER HEADACHE WAS "GETTING BETTER, AND MY CONGESTION IS TOO." NO REQUESTS AT THIS TIME. pt O2 SAT 100% ON ROOM AIR. ROOM TEMP 68, pt STATED "I DON'T FEEL WARM, I LIKE THE ROOM COOL. IT MIGHT BE WHY I'M FEELING BETTER." CALL LIGHT WITHIN REACH.
--- NOTE | 2019-12-26 02:15 | NUR ---
IV PUMP ALARMING, NEW BAG OF FLUIDS HUNG. pt RESTING WITH EYES CLOSED, RESPIRATIONS REGULAR AND UNLABORED. CALL LIGHT WITHIN REACH.
--- NOTE | 2019-12-26 03:53 | NUR ---
ROUNDED ON pt. RESTING WITH EYES CLOSED, RESPIRATIONS REGULAR AND UNLABORED. CALL LIGHT WITHIN REACH.
--- NOTE | 2019-12-26 05:03 | NUR ---
CALL LIGHT ON. pt UP TO VOID AND BACK TO BED. DENIES PAIN AT THIS TIME. STATED "MY HEADACHE IS GONE" ASSESSMENT DONE. pt REQUESTED HER MORNING THYROID MEDS, GIVEN (SEE MAR). FRESH WATER AND WARM BLANKET PROVIDED. CALL LIGHT WITHIN REACH.
--- NOTE | 2019-12-26 05:58 | NUR ---
LAB DRAW COMPLETED. pt UP TO VOID AND BACK TO BED. NO REQUESTS AT THIS TIME. CALL LIGHT WITHIN REACH.
--- NOTE | 2019-12-26 07:30 | NUR ---
maintenance technician 3rd shift report has been received by Day shift. Pt is sleeping, guardrails are up, call light in place will continue to monitor.
--- NOTE | 2019-12-26 08:45 | NUR ---
Pt alert/oriented resting in bed. Assessment completed. Pt reports she feels btr than yesterday and this has been one of her shorter episodes and is not experiencing pain at this time. MD Boland at bed side and noted progess in Pt recovery, discharging Pt today. Pt is to follow-up her PCP after discharge. Pt is resting in bed eating breakfast, guardrails up, call light within reach. Will continue to monitor.
--- NOTE | 2019-12-26 11:03 | NUR ---
PATIENT RESTING IN BED AT THIS TIME TALKING ON THE PHONE WAITING FOR HER TO ARRIVE. PATIENT IS READY FOR DISCHARGE. PATIENT IV WAS DCD WITH NO ISSUES. PHARMACY WILL BE IN TO TALK WITH PATIENT PRIOR TO DISCHARGE. WILL CONTINUE TO CLOSELY MONITOR.
--- NOTE | 2019-12-26 12:15 | NUR ---
PATIENT DISCHARGED HOME WITH HER . WHEELED PATIENT TO THE FRONT OF THE HOSPITAL WITH NO ISSUES. ALL BELONGINGS SENT WITH PATIENT. IV WAS DCD. ALL QUESTIONS ANSWERED. NO FURTHER NEEDS AT THIS TIME.
== END 2019-12-26 12:20 | disposition home or self-care (01) ==
LOC: ED 04:35 → CCU 04:36
PROVIDERS: ADMIT Internal Medicine
DX: I95.9 Hypotension, unspecified (principal); T68.XXXA Hypothermia, initial encounter; E34.0 Carcinoid syndrome; E87.6 Hypokalemia; E11.9 Type 2 diabetes mellitus without complications; M81.0 Age-related osteoporosis without current pathological fracture; E03.9 Hypothyroidism, unspecified; Z88.0 Allergy status to penicillin; Z88.1 Allergy status to other antibiotic agents; Z91.013 Allergy to seafood; Z88.5 Allergy status to narcotic agent; Z79.899 Other long term (current) drug therapy
CPT/HCPCS: 36415; 51702; 80048; 80053; 81001; 83605; 83735; 84484; 85025; 85610; 85730; 93005; 93010; 99291; G0378; J3480; J7030

== ENCOUNTER 2020-08-01 07:03 | Emergency (ER) | payer BC ==
[~2020-08-01] VITALS: Ht 167.6 cm; Wt 78.2 kg
[~2020-08-01 07:03] MED LIST changes: +ALENDRONAT70 MG/75 M PO; +CLARITIN10 MG PO; +DICLOFENAC POTA50 MG PO; +EFUDEX40 GM TOP; +LEVOTHYROXINE100 MCG PO; +MAGOX 400400 MG PO; +SF 5000 PLUS51 GM PO; +TYLENOL EXTRA500 MG PO; +VITAMIN K100 MCG PO
--- OUTSIDE RECORDS SUMMARY | 2020-08-01 07:06 | XMS ---
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 ETori VISIT COUNT (12 MO.) 3 [facility] TOTAL 3 NOTE: Visits indicate total known visits. ED/UCC VISIT TRACKING (12 MO.) 08/01/2020 07:04 [facility] [place] TYPE: Emergency COMPLAINT: - SEIZURE 07/21/2020 03:07 [facility] [place] TYPE: Emergency COMPLAINT: - SEIZURE 12/25/2019 04:35 [facility] [place] TYPE: Emergency COMPLAINT: - POSS. SEIZURE INPATIENT VISIT TRACKING (12 MO.) 07/21/2020 03:08 [facility] [place] TYPE: Observation COMPLAINT: - HYPOKELEMIA DIAGNOSES: - Allergy status to narcotic agent status - Contact with and (suspected) exposure to other viral communic - Age-related osteoporosis without current pathological fractur - Allergy to seafood - Other fci (current) drug therapy - Bee allergy status - Hypothyroidism, unspecified - Allergy status to other antibiotic agents status - Essential (primary) hypertension - Allergy status to other drugs, medicaments and biological sub - Allergy status to penicillin - Hypomagnesemia - Hypokalemia - Carcinoid syndrome - ferry terminal agent (current) use of oral hypoglycemic drugs 12/25/2019 04:36 [facility] [place] TYPE: Observation COMPLAINT: - HYPOTENSION DIAGNOSES: - Type 2 diabetes mellitus without complications - Allergy to seafood - Allergy status to narcotic agent status - Hypotension, unspecified - Allergy status to other antibiotic agents status - Carcinoid syndrome - Hypokalemia - Hypothermia, initial encounter - Hypothyroidism, unspecified - Age-related osteoporosis without current pathological fractur - Allergy status to penicillin - Other fci (current) drug therapy [email or web address]
[2020-08-01] MEDS ORDERED: ONDANSETRON ODT8 MG PO (13:49)
--- NOTE | 2020-08-01 15:41 | EKG ---
[facility] [address] [place], [place] [address] \T\ T wave abnormality, consider lateral ischemia Prolonged QT Abnormal ECG When compared with ECG of 21-JUL-2020 03:14, No significant change was found Confirmed by FABIO BAUER DO ([id number]) on 08/01/2020 3:41:38 PM Electronically Signed By: FABIO BAUER DO 08/01/20 1541 PATIENT NAME: JOVITA GUTIERREZ Electrocardiogram DATE OF : 59 PHYSICIAN: FABIO BAUER DO REPORT #: [id number] REPORT IS CONFIDENTIAL AND NOT TO BE RELEASED WITHOUT AUTHORIZATION
== END 2020-08-01 16:28 | disposition home or self-care (01) ==
LOC: ED 07:03
DX: E34.0 Carcinoid syndrome (principal); I10 Essential (primary) hypertension; E03.9 Hypothyroidism, unspecified; Z87.891 Personal history of nicotine dependence; Z88.8 Allergy status to other drugs, medicaments and biological substances; Z88.5 Allergy status to narcotic agent; Z88.1 Allergy status to other antibiotic agents; Z91.013 Allergy to seafood; Z91.030 Bee allergy status; Z79.899 Other long term (current) drug therapy; Z79.84 Long term (current) use of oral hypoglycemic drugs
CPT/HCPCS: 80053; 85025; 93005; 93010; 96361; 96374; 96375; 96376; 99285-25; J2354; J2405; J7030

== ENCOUNTER 2020-09-29 14:29 | Emergency (ER) | payer BC ==
[~2020-09-29] VITALS: Ht 167.6 cm; Wt 78.2 kg
[~2020-09-29 14:29] MED LIST changes: +ONDANSETRON ODT8 MG PO
--- OUTSIDE RECORDS SUMMARY | 2020-09-29 14:32 | XMS ---
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 08/03/2020-Current PHONE: [phone] Neha has no Care Guidelines for this patient. Care History Medical/Surgical 08/03/2020 [facility] Patient has scheduled follow up with Dr. Sharpe on 08/18/2020 08/03/2020 [facility] - Patient is currently established with [facility]. If patient is seen in the ED during business hours. Please contact CHWs at [facility]. Care Recommendation: If this patient has had 5 or more Emergency Department visits in the last 12 months.\T\nbsp; Patient will require education on the scope and purpose of the ED as an acute care provider not a Primary Care Provider and should not be utilized for chronic conditions.\T\nbsp; These are guidelines and the provider should exercise clinical judgment when providing care. 08/03/2020 [facility] Appropriate use of ED.\T\nbsp; Patient has scheduled follow up with Dr. Sharpe on 08/18/2020 [facility] NOTE: Visits indicate total known visits. 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 SEIZURE INPATIENT VISIT TRACKING (12 MO.) 07/21/2020 03:08 [facility] [place] TYPE: Observation COMPLAINT: - HYPOKELEMIA DIAGNOSES: - Allergy status to narcotic agent - Contact with and (suspected) exposure to other viral communicable diseases - Age-related osteoporosis without current pathological fracture - Allergy to seafood - Other fpc (current) drug therapy - Bee allergy status - Hypothyroidism, unspecified - Allergy status to other antibiotic agents - Essential (primary) hypertension - Allergy status to other drugs, medicaments and biological substances - Allergy status to penicillin - Hypomagnesemia - Hypokalemia - Carcinoid syndrome - 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
[2020-09-29] MEDS ORDERED: DICLOFENAC SODI75 MG PO (15:06)
[2020-09-29] MEDS ORDERED: OCTREOTIDE100 MCG/2 INJ (15:11)
== END 2020-09-29 17:18 | disposition home or self-care (01) ==
LOC: ED 14:29
DX: E34.0 Carcinoid syndrome (principal)
CPT/HCPCS: 80048; 99284

== ENCOUNTER 2021-10-25 13:31 | Observation (INO) | payer BC ==
[~2021-10-25] VITALS: Ht 167.6 cm; Wt 68.0 kg
[~2021-10-25 13:31] MED LIST changes: +OCTREOTIDE INJ; +OCTREOTIDE100 MCG/2 INJ; +OCTREOTIDE100 MCG/2 SUB-Q
--- OUTSIDE RECORDS SUMMARY | 2021-10-25 13:40 | XMS ---
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 Care History Medical/Surgical 08/22/[address] [facility] Appropriate use of ED. Patient had seen PCP Dr. Sharpe on 08/14/2021 for lightheadedness due to Carcinoid Syndrome. Next appointment on 09/04/2021. 08/03/[address] [facility] Patient has scheduled follow up with Dr. Sharpe on 08/18/2020 08/03/[address] [facility] - Patient is currently established with [facility]. If patient is seen in the ED during business hours. Please contact CHWs at [facility]. Care Recommendation: If this patient has had 5 or more Emergency Department visits in the last 12 months.\T\nbsp; Patient will require education on the scope and purpose of the ED as an acute care provider not a Primary Care Provider and should not be utilized for chronic conditions.\T\nbsp; These are guidelines and the provider should exercise clinical judgment when providing care. E.D. VISIT COUNT (12 MO.) 2 [facility] TOTAL 2 NOTE: Visits indicate total known visits. ED/C VISIT TRACKING (12 MO.) 10/25/2021 13:32 [facility] [place] TYPE: Emergency COMPLAINT: - FLUSHING, HIGH HEART RATE, LIGHT HEADEDNESS 08/21/2021 11:40 [facility] [place] TYPE: Emergency COMPLAINT: - ALTERED INPATIENT VISIT TRACKING (12 MO.) 08/21/2021 11:41 [facility] [place] TYPE: Observation COMPLAINT: - CARCINOID CRISIS DIAGNOSES: - Essential (primary) hypertension - Carcinoid syndrome - Bee allergy status - Hypothyroidism, unspecified - Type 2 diabetes mellitus without complications - correction (current) use of oral hypoglycemic drugs - Allergy to seafood - Allergy status to penicillin - Allergy status to other antibiotic agents - Allergy status to other drugs, medicaments and biological substances - Allergy status to narcotic agent - Age-related osteoporosis without current pathological fracture [email or web address]
--- NOTE | 2021-10-25 19:34 | NUR ---
report called from ronen moura rn, e.d., pt alert and oriented, she independent on room air, remains painful.
--- NOTE | 2021-10-25 19:55 | NUR ---
PT HERE FROM ED, UP TO THE TOILET, VITALS DONE, WARM BLANKET GIVEN
--- NOTE | 2021-10-25 21:05 | NUR ---
FLUIDS INFUSING PER ORDERS. PROVIDED WATER. CALL LIGHT WITHIN REACH.
--- NOTE | 2021-10-25 21:49 | NUR ---
SCHEDULED MEDICATIONS GIVEN (SEE MAR). pt REPORTED A 4/10 HEADACHE. pt REQUESTED PRN TYLENOL. GIVEN. pt UP TO VOID AND BACK TO BED SBA. CALL LIGHT WITHIN REACH.
--- NOTE | 2021-10-25 22:16 | NUR ---
PT RESTING IN BED, ALERT TO NAME. SHE REPORTS HER PAIN HAS IMPROVED, SHE DECLINED WANTING TORDOL FOR PAIN AT THIS TIME. ASSESSMENT COMPLETE, VICTORIA ONTIVEROS COMPLETED ADMISSION CHARTING AND MEDICATION. SHE REPORTS SHE FEELS TIRED, SHE VERBALIZED NOT HAVING ANY NEEDS AT THIS TIME.
--- NOTE | 2021-10-26 00:21 | NUR ---
ROUNDED ON PT, SHE IS ALERT AND ADJUSTING HER BED BLANKETS, SHE SAID "I AM ROASTING NOW" SHE WAS COLD EARLIER AND WAS GIVEN WARM BLANKETS. PT REPORTS HER PAIN IS MUCH BETTER, SHE SAID SHE HAS A MILD CASTELLANOS, ASKED IF SHE WOULD LIKE TORDOL FOR PAIN/ HEAD ACHE AT THIS TIME, SHE SAID "NO", SHE IS OK AT THIS TIME. SHE DOES NOT REPORT ANY NAUSEA. WILL CONTINUE TO MONITOR CLOSELY.
--- NOTE | 2021-10-26 02:33 | NUR ---
HELD 0200 DOSE IF VASOTEC PT SYSTOLIC B/P JUST BELOW PARAMETER RANGE PER . REGLAN ADMINISTERED PER ORDERS, PT REPORTS HER HEADACHE IS WORSE SHE REPORT 03/12, PT AGREED TO TAKE TORDOL AT THIS TIME, ADMINISTERED 15MG IV, AT THIS TIME.
--- NOTE | 2021-10-26 06:23 | NUR ---
PT ADMITTED AT START OF SHIFT, SHE HAS SLEPT WELL, ADMINISTERED TYLENOL ONCE AND TORDOL 15 MG ONCE FOR HEADACHE. SHE REPORTS HER OVER ALL PAIN AND NAUSEA HAS IMPROVED. REGLAN SCHEDULED PER ORDERS. SHE IS STANDBY ASSIST UP TO BATHROOM. VOIDING QUANTITY SUFFICIENT. V/S STABLE.
--- NOTE | 2021-10-26 07:15 | NUR ---
bedside report from Maritza RN - pt reports pain, nausea and headache all improved, call light in reach - iv fusing.
--- NOTE | 2021-10-26 09:45 | NUR ---
Spoke with pt and she states symptoms have resolved. She would like to discharge. UPdated per report, would like her to eat first. She states she has not vomited since 8 last night. She is ready to eat. Lives in a 1 story home with her spouse. Daughter is visiting from [place] and pt really wants to dc. She denies further needs. Rn updated.
--- NOTE | 2021-10-26 10:00 | NUR ---
advance diet - ordered toast per pt request. Applesauce provided - pt denies complaints - anxious to go home after eating.
--- NOTE | 2021-10-27 17:32 | EKG ---
[facility] [address] [place] [address] Signed Normal sinus rhythm Prolonged QT Abnormal ECG When compared with ECG of 21-AUG-2021 12:14, Nonspecific T wave abnormality no longer evident in Anterolateral leads Confirmed by FABIO BAUER DO ([id number]) on 10/27/2021 5:32:39 PM Electronically Signed By: FABIO BAUER DO 10/27/21 1732 PATIENT NAME: BRENDAJOVITA Electrocardiogram DATE OF : 59 PHYSICIAN: FABIO BAUER DO REPORT #: [id number] REPORT IS CONFIDENTIAL AND NOT TO BE RELEASED WITHOUT AUTHORIZATION
== END 2021-10-26 13:20 | disposition home or self-care (01) ==
LOC: ED 13:31 → MS 13:33
PROVIDERS: ADMIT Internal Medicine; ATTEND Internal Medicine
DX: E34.0 Carcinoid syndrome (principal); I10 Essential (primary) hypertension; E11.9 Type 2 diabetes mellitus without complications; E03.9 Hypothyroidism, unspecified; E78.5 Hyperlipidemia, unspecified; M81.0 Age-related osteoporosis without current pathological fracture; H40.9 Unspecified glaucoma; Z20.822 Contact with and (suspected) exposure to COVID-19; Z88.8 Allergy status to other drugs, medicaments and biological substances; Z88.1 Allergy status to other antibiotic agents; Z91.030 Bee allergy status; Z91.038 Other insect allergy status; Z88.5 Allergy status to narcotic agent; Z88.0 Allergy status to penicillin; Z91.013 Allergy to seafood
CPT/HCPCS: 74022; 80053; 85025; 93005; 93010; 96374; 96375; 99285-25; C9113; C9803; J1170; J1790; J1815; J1885; J2354-JA; J2405; J2765; J7030; J7121; U0003

== ENCOUNTER 2023-06-06 03:55 | Observation (INO) | payer MEDICARE, OTHER ==
[2023-06-06] VITALS (11 sets, daily range): BP systolic 105–120; BP diastolic 57–86
[~2023-06-06] VITALS: Ht 167.6 cm; Wt 79.0 kg
--- OUTSIDE RECORDS SUMMARY | ~2023-06-06 | XMS | Continuity of Care Document ---
Demographics + + + | Address | [address] | | | [place] [address] | + + + | Preferred Language | Unknown | + + + | Marital Status | | + + + | Presybeterian Affiliation | Unknown | + + + | Race | White | + + + | Ethnic Group | Unknown | + + + Author + + + | Author | [facility] | + + + | Organization | [facility] | + + + | Address | [address] | | | [place] [address] | + + + | Phone | | + + + Care Team Providers + + + + | Care Clinical Documentation Developer Name | Role | Phone | + + + + Unavailable | Unavailable | + + + + Allergies No information. Encounters No information. Functional Status No information. Immunizations No information. Medications No information. Problems + + + + | date | description | facility | + + + + | 2023-04-10 14:22 | AGE-RELATED OSTEOPOROSIS | [facility] | | | W/O CURRENT PATHOLOGICAL | | | | FRACTURE | | + + + + | 2023-04-10 14:22 | OTH DISRD OF BONE DENSITY | [facility] | | | AND STRUCTURE, MULTIPLE | | + + + + Procedures No information. Results/Labs No information. Social History No information. Vital Signs No information."
--- OUTSIDE RECORDS SUMMARY | ~2023-06-06 | XMS | Continuity of Care Document ---
Demographics + + + | Address | [address] | | | [place] [address] | + + + | Preferred Language | Unknown | + + + | Marital Status | | + + + | Orthodox Affiliation | Unknown | + + + | Race | White | + + + | Ethnic Group | Unknown | + + + Author + + + | Author | [facility] | + + + | Organization | [facility] | + + + | Address | [address] | | | [place] [address] | + + + | Phone | | + + + Care Team Providers + + + + | Care Foam Rubber Curer Name | Role | Phone | + [...]
--- OUTSIDE RECORDS SUMMARY | ~2023-06-06 | XMS | Continuity of Care Document ---
Demographics + + + | Address | [address] | | | [place] [address] | + + + | Preferred Language | Unknown | + + + | Marital Status | | + + + | Judaism Affiliation | Unknown | + + + | Race | White | + + + | Ethnic Group | Unknown | + + + Author + + + | Author | [facility] | + + + | Organization | [facility] | + + + | Address | [address] | | | [place] [address] | + + + | Phone | | + + + Care Team Providers + + + + | Care Product Safety Technician Name | Role | Phone | + [...]
[~2023-06-06 03:55] MED LIST changes: +ALPHA LIPOIC A300 MG PO; -CALCIUM 600 +1 EAC5 PO; +CITRACAL + D E1 EACH PO; +OCTREOTIDE100 MCG/1 INJ; +PROLIA60 MG/1 ML SUB-Q; +SF 5000 PLUS51 GM MM; -SF 5000 PLUS51 GM PO; +SLOW-MAG71.5 MG PO; +VITAMIN D3125 MC2 PO; -VITAMIN D35000 UNI1 PO
[2023-06-06 04:22] LABS: HEMOGLOBIN 10.7 g/dL (12.0-18.0)
[2023-06-06 04:24] LABS: HEMATOCRIT 32.2 % (35.0-50.0); MCH 32.5 (27-36); MCHC 33.2 g/dl (30-36); MCV 97.9 fl (81-99); PLATELET COUNT 238 K/uL (140-440); RBC 3.29 M/ul (4.3-5.7); RDW 12.7 (10.5-15.0)
[2023-06-06 04:29] LABS: ALBUMIN 3.2 g/dL (3.4-5.0); ALBUMIN/GLOBULIN RATIO 1.19 (1.1-2.4); ANION GAP 17.7 (7-21); BILIRUBIN, TOTAL 0.5 ng/dL (0.2-1.0); BUN/CREATININE RATIO 20.28 (6.0-28.6); CREATININE, SERUM 1.38 mg/dL (0.55-1.02); POTASSIUM 2.7 mmol/L (3.5-5.1); PROTEIN, TOTAL 5.9 g/dL (6.4-8.2)
[2023-06-06 04:37] LABS: BANDS, MANUAL DIFF 2; LYMPHOCYTES, MANUAL DIFF 65; MONOCYTES, MANUAL DIFF 2; NEUTROPHILS, MANUAL DIFF 31
[2023-06-06 06:33] LABS: INFLUENZA B NAA NEGATIVE (NEGATIVE); RESPIRATORY SYNCYTIAL VIR NAA NEGATIVE (NEGATIVE)
--- NOTE | 2023-06-06 07:45 | NUR ---
RN AT BEDSIDE AFTER RECEIVING REPORT - PT AAO, ABLE TO VERBALIZE ENTIRE HAPPENINGS OF EVENT, STATES "THIS IS A MINOR EVENT COMPARED TO WHAT ARMAAN HAD". PT NSR ON MONITOR AT THIS TIME. IN NO DISTRESS. POTASSIUM INFUSION FINISHING, IV SITES PATENT X 2.
--- NOTE | 2023-06-06 08:10 | NUR ---
In and spoke with Fide. She states she cont. to live with her , Wil. They have 3 steps into their home. Spouse is a PT and she states they have every piece of equipment there is. She does not use, prefers a walking stick as her balance is poor following a back surgery. 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 She is seeing a new oncologist at [facility]. Hoping she can discover why she has frequent symptoms. She denies needs or concerns. No financial concerns. Plans on dc to home when cleared medically.
--- NOTE | 2023-06-06 08:34 | NUR ---
PT ASSISTED UP TO BSC TO VOID - PT DENIES DIZZINESS ON STANDING, MOMENTS OF UNSTEADY FOOTING WHILE TURNING TO REACH. HR STEADY DURING TRANSFER. EBEN CARE PREFORMED BY PT. BACK TO BED WITH CALL LIGHT AT SIDE. HEALTH HISTORY COMPLETE - PT ANXIOUS TO RESTART HOME MEDS "I NEVER MISS THEM".
--- NOTE | 2023-06-06 08:37 | NUR ---
PT BROUGHT HOT CHOCOLATE. NO FURTHER NEEDS. CALL LIGHT WITHIN REACH
--- NOTE | 2023-06-06 09:00 | NUR ---
RN IN ROOM ROUNDING WITH MD - NEW ORDERS RECEIVED AND ENTERED. POC DISCUSSED WITH PT - ALL QUESTIONS ANSWERED.
--- NOTE | 2023-06-06 09:55 | NUR ---
PT APPEARED TO BE SLEEPING. DID NOT DISTURB. SAID SILENT PRAYER FOR HEALING FROM [facility].
[2023-06-06 10:00] LABS: ANION GAP 14.5 (7-21); BUN/CREATININE RATIO 19.42 (6.0-28.6); CALCIUM 8.1 mg/dL (8.5-10.1); CREATININE, SERUM 1.39 mg/dL (0.55-1.02); POTASSIUM 4.5 mmol/L (3.5-5.1)
--- NOTE | 2023-06-06 10:24 | NUR ---
PT ASSISTED UP TO BSC - IMPROVING STRENGTH AND STEADINESS THIS TIME. VOIDING URINE WITHOUT DIFFICULTY. VS REMAIN WNL. PT STATES SHE "JUST FEEL WASTED". CALL LIGHT AT SIDE. BREAKFAST PROVIDED PER PT REQUEST OF TOAST AND VARIETY BOWL OF FRUIT. PT REPORTS SOME NAUSEA, EMESIS BAG AT SIDE.
--- NOTE | 2023-06-06 11:30 | NUR ---
PT RESTING IN BED WITH EYES CLOSED, RR EVEN AND UNLABORED. VS WNL ON MONITOR. CALL LIGHT AT SIDE.
--- NOTE | 2023-06-06 13:26 | NUR ---
ASSESSMENT COMPLETE - UNCHANGED. PT ABLE TO AMBULATE TO BATHROOM STEADY ON FEET WITHOUT DIZZINESS. HR REMAINED UNCHANGED WITH ACTIVITY. REPORTS SOME NAUSEA WITH ATTEMPTING TO EAT LUNCH. MINIMAL APPETITE. VS REMAIN WNL.
--- NOTE | 2023-06-06 13:34 | NUR ---
MED REC COMPLETE
--- NOTE | 2023-06-06 14:51 | NUR ---
PT RESTING IN BED VISITING WITH FAMILY AT BEDSIDE.
--- NOTE | 2023-06-06 16:42 | NUR ---
TYLENOL ADMINISTERED FOR 5/10 HEADACHE - PT RESTING IN BED WITH NO OTHER COMPLAINTS. AT SIDE. MED REC DISCUSSED WITH PT - STATES SHE WOULD LIKE TO TAKE HER HOME MEDS THIS EVENING.
--- NOTE | 2023-06-06 17:10 | NUR ---
REPORT RECEIVED FROM WESTON CARROLL. PT ARRIVED TO MED/SURG BY BED. PT REPORTS 3/10 HEADACHE PAIN THAT IS "GETTING BETTER AFTER THE TYLENOL." PT DENIES NEED FOR ADDITIONAL PAIN MEDICATION. PT DENIES NASUEA AT THIS TIME. ABDOMEN SOFT AND NON TENDER. BOWEL TONES ACTIVE. PT REPORTS "I'M FEELING STABLE BUT IF I PUT A BITE OF FOOD IN MY MOUTH THEN I MIGHT FEEL LIKE I'M GOING TO THROW UP." HEART TONES REGULAR. TELEMETRY MONITORING IN PLACE WITH NORMAL SINUS RYTHEM SEEN ON MONITOR AND RATE IN THE 60'S. BMAT LEVEL 4, PT STEADY ON FEET AND ABLE TO MOVE IV POLE WITHOUT ISSUE. IV FLUIDS STARTED. PT DENIES ADDITIONAL REQUESTS OR COMPLAINTS. CALL LIGHT WITHIN REACH. BED RAILS UP.
--- NOTE | 2023-06-06 17:39 | NUR ---
CALL PLACED TO DR. DAVIS. PT REQUESTS TO RESTART HER HOME MEDICATIONS. DR DAVIS STATES HE WILL PLACE ORDERS. PT UPDATED REGARDING MEDICATIONS MD FEELS COMFORTABLE RESTARTING AND MEDICATIONS HE WOULD LIKE TO CONTINUE TO HOLD. PT VERBALIZES UNDERSTANDING AND STATES HER QUESTIONS HAVE BEEN ANSWERED.
--- NOTE | 2023-06-06 18:38 | NUR ---
THIS RN TO ROOM TO CHECK ON PT. PT RESTING IN BED, SEMIFOWLER, WATCHING TV. PT REPORTS MILD HEADACHE AT 2-310. PT DECLINES COOL OR HEAT PACK. PT REQUESTS AN EXTRA PILLOW, PROVIDED. PT DENIES ADDITIONAL REQUESTS OR COMPLAINTS. CALL LIGHT WITHIN REACH. BED RAILS UP.
--- NOTE | 2023-06-06 19:35 | NUR ---
Fide is awake resting in bed without complaint. Bedside report given by Jade.
--- NOTE | 2023-06-06 22:39 | EKG ---
[facility] [address] [place] [address] Signed Atrial fibrillation Low voltage QRS ST \T\ T wave abnormality, consider inferior ischemia Abnormal ECG When compared with ECG of 25-OCT-2021 13:38, Atrial fibrillation has replaced Sinus rhythm Nonspecific T wave abnormality now evident in Anterolateral leads Confirmed by Kenny Davis MD () on 06/06/2023 10:39:35 PM Electronically Signed By: KENNY DAVIS MD 06/06/23 2239 PATIENT NAME: JOVITA GUTIERREZ Electrocardiogram DATE OF : 59 PHYSICIAN: KENNY DAVIS MD REPORT #: [id number] REPORT IS CONFIDENTIAL AND NOT TO BE RELEASED WITHOUT AUTHORIZATION
--- NOTE | 2023-06-06 22:40 | EKG ---
[facility] [address] [place] [address] Signed Normal sinus rhythm Normal ECG When compared with ECG of 06-JUN-2023 at 04:52, Normal sinus rhythm has replaced Atrial fibrillation Confirmed by Kenny Davis MD () on 06/06/2023 10:40:27 PM Electronically Signed By: KENNY DAVIS MD 06/06/23 2240 PATIENT NAME: JOVITA GUTIERREZ Electrocardiogram DATE OF : 59 PHYSICIAN: KENNY DAVIS MD REPORT #: [id number] REPORT IS CONFIDENTIAL AND NOT TO BE RELEASED WITHOUT AUTHORIZATION
[2023-06-07 02:00] VITALS: BP 114/67
--- NOTE | 2023-06-07 05:28 | NUR ---
Fide has slept on and off during the night. She is awake now and ready to go home and get some rest there. She is feeling better. She is anticipating being discharged today. Up ad maritza without difficulty. IV infusing @ 125/h. VSS, tele intact has had HR in the 50's for most of the night.
[2023-06-07 05:30] VITALS: BP 130/72
[2023-06-07 05:44] LABS: BASOPHILS 0.4 % (0-2); EOSINOPHILS 3.6 % (0-6); HEMATOCRIT 30.3 % (35.0-50.0); HEMOGLOBIN 10.1 g/dL (12.0-18.0); LYMPHOCYTES 33.9 % (24-44); MCHC 33.4 g/dl (30-36); MCV 98.9 fl (81-99); MONOCYTES 6.9 % (0-12); NEUTROPHILS 55.2 % (39-80); PLATELET COUNT 149 K/uL (140-440); RBC 3.06 M/ul (4.3-5.7); RDW 12.9 (10.5-15.0)
[2023-06-07 06:00] LABS: ALBUMIN 3.2 g/dL (3.4-5.0); ALBUMIN/GLOBULIN RATIO 1.19 (1.1-2.4); ANION GAP 10.9 (7-21); BILIRUBIN, TOTAL 0.5 ng/dL (0.2-1.0); BUN/CREATININE RATIO 19.62 (6.0-28.6); CALCIUM 8.3 mg/dL (8.5-10.1); CREATININE, SERUM 1.07 mg/dL (0.55-1.02); MAGNESIUM 1.9 mg/dL (1.8-2.4); PHOSPHORUS, INORGANIC 2.8 mg/dL (2.5-4.9); POTASSIUM 3.9 mmol/L (3.5-5.1); PROTEIN, TOTAL 5.9 g/dL (6.4-8.2)
--- NOTE | 2023-06-07 07:21 | NUR ---
REPORT RECEIVED FROM ASHLEIGH, RNs. PT AWAKE AND ALERT AND GETTING UP TO RESTROOM. PT STEADY ON FEET, NO ASSISTANCE NEEDED. PT REPORTS SHE NEEDS TO TAKE BOTH HER THYROID MEDICATIONS PRIOR TO BREAKFAST AND REQUESTS THEM NOW. SEE MAR FOR MEDICATION GIVEN. PT REPORTS 3/10 HEADACHE BUT STATES SHE DOES NOT WANT TO TAKE TYELNOL UNTIL SHE HAS FOOD AND DOES NOT WANT TO EAT YET RELATE TO HER THYROID MEDICATION. PTS METHOD AND UNDERSTANDING OF MEDICATION REINFORCED. PT DENIES ADDITIONAL REQUESTS OR COMPLAINTS. CALL LIGHT WITHIN REACH. BED RAILS UP.
--- NOTE | 2023-06-07 08:53 | NUR ---
MORNING ASSESSMENT AND MEDICATION DUE. PT UP TO CHAIR, FINISHED WITH BREAKFAST. PT REPORTS ONGOING / HEADACHE PAIN. PT DENIES NEED FOR PAIN MEDICAITON AT THIS TIME. PT REPORTS "A LITTLE FOOD AND BEING UPRIGHT" HELPS HER HEADACHE PAIN. PT ALERT AND OREINTED TO ALL. HEART TONES REGULAR. NORMAL SINUS RYTHM SEEN ON MONITOR, WITH RATE INT HE 50-60'S. LUNG SOUNDS CLEAR. ABDOMEN SOFT AND NON TENDER. BOWEL TONES ACTIVE. PT REPORTS "I HAD A VERY LOOSE AND UNIQUE BOWEL MOVEMENT, I WOULDN'T CALL IT DIARRHEA, IT WAS JUST NOT NORMAL." PT REPORTS HER STOMACH "ISN'T QUITE FLAT NOMRAL." PT REPORTS HER HANDS ALSO FEEL TIGHT "FROM ALL THE IV FLUID." MEDICATION GIVEN. PT DENIES ADDITONAL REQUESTS OR COMPLAINTS. IV FLUID BAG EMPTIED. IV SALINE LOCKED AT THIS TIME TO ALLOW FOR FREEDOM OF MOVEMENT. IV TO RIGHT AC DC'D PER PROTOCOL IT IS NO LONGER NEEDED. CALL LIGHT WITHIN REACH. PT REMAINS UP TO CHAIR.
--- NOTE | 2023-06-07 10:18 | NUR ---
PT READY FOR DISCHARGE. PT UP TO RESTROOM, STEADY ON FEET, NO ASSISTANC NEEDED. PT DRESSE SELF, NO ASSISTANCE NEEDED. IV DC'D PER PROTOCOL. GAUZE AND COBAN APPLIED. VITAL SIGNS STABLE. DISCHRAGE INSTRUCTIONS REVEIWED WITH PT. PT VERBALIZES UNDERSTANDING OF INSTRUCTIONS, MEDICATIONS AND FOLLOW UP. PT REPORTS ALL HER QUESTIONS HAVE BEEN ANSWERED. PT AMBULATED FROM MED/SURG. NO ADDITONAL REQUESTS OR CONCERNS.
== END 2023-06-07 10:30 | disposition home or self-care (01) ==
LOC: ED 03:55 → CCU 03:57 → MS 17:10
PROVIDERS: Emergency Medicine; ADMIT Family Medicine; ATTEND Family Medicine
DX: I48.0 Paroxysmal atrial fibrillation (principal); D47.02 Systemic mastocytosis; E87.6 Hypokalemia; R11.2 Nausea with vomiting, unspecified; R19.7 Diarrhea, unspecified; E83.42 Hypomagnesemia; N17.9 Acute kidney failure, unspecified; E03.9 Hypothyroidism, unspecified; K21.9 Gastro-esophageal reflux disease without esophagitis; I10 Essential (primary) hypertension; Z20.822 Contact with and (suspected) exposure to COVID-19; Z88.2 Allergy status to sulfonamides; Z88.0 Allergy status to penicillin; Z88.1 Allergy status to other antibiotic agents; Z88.5 Allergy status to narcotic agent; Z79.84 Long term (current) use of oral hypoglycemic drugs; Z79.890 Hormone replacement therapy; Z79.899 Other long term (current) drug therapy
CPT/HCPCS: 36415; 80048; 80053; 83690; 83735; 84100; 85025; 87502; 93005; 93010; 93306; 96365; 96366; 96372; 96375; 99285-25; A9270; C9803; G0378; J0171; J1200; J1650; J2060; J2405; J3475; J3480; J7030; J7121; U0002

== ENCOUNTER 2023-09-17 01:50 | Emergency (ER) | payer MEDICARE, OTHER ==
[~2023-09-17] VITALS: Ht 167.6 cm; Wt 72.6 kg
[2023-09-17 04:00] VITALS: BP 128/75
[2023-09-17 05:17] LABS: HEMATOCRIT 35.5 % (35.0-50.0); HEMOGLOBIN 11.7 g/dL (12.0-18.0); MCV 99.3 fl (81-99); RBC 3.57 M/ul (4.3-5.7)
[2023-09-17 05:18] LABS: MCH 32.8 (27-36); PLATELET COUNT 277 K/uL (140-440); RDW 13.5 (10.5-15.0)
[2023-09-17 05:21] LABS: BASOPHILS, MANUAL DIFF 4; LYMPHOCYTES, MANUAL DIFF 59; MONOCYTES, MANUAL DIFF 3; NEUTROPHILS, MANUAL DIFF 34
[2023-09-17 05:23] LABS: BUN/CREATININE RATIO 19.08 (6.0-28.6); CALCIUM 9.7 mg/dL (8.5-10.1); CREATININE, SERUM 1.31 mg/dL (0.55-1.02); MAGNESIUM 1.9 mg/dL (1.8-2.4)
[2023-09-17 05:24] LABS: ALBUMIN 4.1 g/dL (3.4-5.0); ALBUMIN/GLOBULIN RATIO 1.41 (1.1-2.4); BILIRUBIN, TOTAL 0.5 ng/dL (0.2-1.0)
== END 2023-09-17 04:00 | disposition home or self-care (01) ==
LOC: ED
PROVIDERS: Family Medicine
DX: D47.02 Systemic mastocytosis (principal); I10 Essential (primary) hypertension; E03.9 Hypothyroidism, unspecified; Z91.013 Allergy to seafood; Z91.030 Bee allergy status; Z88.8 Allergy status to other drugs, medicaments and biological substances; Z88.0 Allergy status to penicillin; Z88.1 Allergy status to other antibiotic agents; Z88.2 Allergy status to sulfonamides; Z88.5 Allergy status to narcotic agent; Z79.84 Long term (current) use of oral hypoglycemic drugs; Z79.899 Other long term (current) drug therapy; Z79.890 Hormone replacement therapy
CPT/HCPCS: 36415; 80053; 83735; 85025; 99283

== ENCOUNTER 2025-09-19 19:25 | Emergency (ER) | payer OTHER, MEDICARE ==
[~2025-09-19] VITALS: Ht 167.6 cm; Wt 71.0 kg
[2025-09-19] MEDS ORDERED: TRAMADOL HCL 50 MG TAB PO ONE (21:15)
[2025-09-19] MEDS ORDERED: HYDROCODONE BIT/ACETAMINOPHEN 5/325 MG 1 TAB HOME.PACK PO ONE (23:45)
[2025-09-19] MEDS ORDERED: HYDROCODON-ACE1 EA10 PO (23:55)
[2025-09-20 00:16] VITALS: BP 138/78
== END 2025-09-20 00:21 | disposition home or self-care (01) ==
LOC: ED 19:25
DX: S82.001A Unspecified fracture of right patella, initial encounter for closed fracture (principal); I10 Essential (primary) hypertension; E03.9 Hypothyroidism, unspecified; W01.0XXA Fall on same level from slipping, tripping and stumbling without subsequent striking against object, initial encounter; Z79.84 Long term (current) use of oral hypoglycemic drugs; Z79.899 Other long term (current) drug therapy; Z88.0 Allergy status to penicillin; Z88.2 Allergy status to sulfonamides; Z88.5 Allergy status to narcotic agent; Z88.8 Allergy status to other drugs, medicaments and biological substances
CPT/HCPCS: 73560; 73700; 99284-25; A9270